=== PATIENT | female | born 1985 | race Caucasian/White ===

== ENCOUNTER 2019-01-29 19:35 | Emergency (ER) | payer BC, MEDICAID ==
[~2019-01-29] VITALS: Ht 167.6 cm; Wt 53.5 kg
[2019-01-29] MEDS ORDERED: CEFTRIAXONE 1 G VIAL IM ONE (20:15)
[2019-01-29] MEDS ORDERED: CEFTRIAXONE 1 G VIAL ONE (20:17)
[2019-01-29] MEDS ORDERED: LIDOCAINE HCL 1% 20 ML VIAL ONE (20:17)
--- NOTE | 2019-01-29 20:35 | NUR ---
Patient discharged to home in stable conditon. Written and verbal after care instructions given. Patient verbalizes understanding of instructions. Walked out of ER with no distress noted.
[2019-01-29 20:36] VITALS: BP 100/77
== END 2019-01-29 20:36 | disposition home or self-care (01) ==
LOC: ER 19:35
DX: L03.031 Cellulitis of right toe (principal)
CPT/HCPCS: 96372; 99283; J0696; J3490; A4663

== ENCOUNTER 2019-01-31 17:57 | Emergency (ER) | payer BC ==
[~2019-01-31] VITALS: Ht 167.6 cm; Wt 53.5 kg
--- NOTE | 2019-01-31 18:49 | NUR ---
Patient discharged to home in stable conditon. Written and verbal after care instructions given. Patient verbalizes understanding of instructions.
== END 2019-01-31 18:50 | disposition home or self-care (01) ==
LOC: ER 18:01
DX: L03.031 Cellulitis of right toe (principal)
CPT/HCPCS: A4663